=== PATIENT | male | born 1960 | race American Indian/Alaskan Native ===

== ENCOUNTER 2019-11-11 18:01 | Emergency (ER) | payer MEDICARE ==
[2019-11-11 18:33] VITALS: BP 141/79
--- NOTE | 2019-11-11 18:46 | Event Note ---
ED Screening Note Date of service: 11/11/19 Time: 18:45 ED Screening Note: 59 y o male presents with pain and swellinmg to right thumb x 2 days PMH: DM.HTN.cholesterol This initial assessment/diagnostic orders/clinical plan/treatment(s) is/are subject to change based on patients health status, clinical progression and re- assessment by fellow clinical providers in the ED. Further treatment and workup at subsequent clinical providers discretion. Patient/guardian urged not to elope from the ED as their condition may be serious if not clinically assessed and managed. Initial orders include: acc eval ID? antibiotics
[2019-11-11] MEDS ORDERED: SULFAMETHOXAZOLE/TRIMETHOPRIM 800/160MG DS TAB PO ONE (22:26)
[2019-11-11] MEDS ORDERED: HYDROcodone/ACETAMINOPHEN 5-325 MG TAB PO ONE (22:26)
--- NOTE | 2019-11-11 22:37 | Emergency Department Report ---
HPI - General Chief Complaint: Extremity Injury, Upper Time Seen by Provider: 11/11/19 21:57 - HPI HPI: 59-year-old -Cong[place] male presents to the emergency department with the complaint of a three-day history of some pain and swelling around the nail of his right thumb. He says that he attempted to open it by poking it with a needle but "only some blood came out." Patient has a history of insulin- dependent diabetes, previous throat cancer and high cholesterol. He just recently moved to the area and does not have a local primary care physician. Denies any fever. Full range of motion of his thumb and hand. ED Past Medical Hx - Past Medical History Hx Diabetes: Yes Hx of Cancer: Yes (throat) Additional medical history: Cholesterol - Surgical History Additional Surgical History: Throat surg - Social History Smoking Status: Current Every Day Smoker Substance Use Type: Alcohol - Medications Home Medications: Home Medications Medication Instructions Recorded Confirmed Last Taken Type Sulfamethoxazole/Trimethoprim 1 each PO BID #14 tablet 11/11/19 Unknown Rx [Bactrim DS TAB] ED Review of Systems ROS: Stated complaint: SORE THUMB Other details as noted in HPI Comment: All other systems reviewed and negative Constitutional: denies: chills, fever Musculoskeletal: joint swelling, arthralgia Skin: lesions (right thumb) Neurological: denies: numbness, paresthesias Physical Exam - Physical Exam Vital Signs: Vital Signs 11/11/19 18:30 Temperature 98 F Pulse Rate 94 H Respiratory 16 Rate Blood Pressure 141/79 O2 Sat by Pulse 97 Oximetry Physical Exam: GENERAL: The patient is well-developed well-nourished. HEENT: Normocephalic. Atraumatic. Patient has moist mucous membranes. EYES: Extraocular motions are intact. NECK: Supple. Trachea is midline. SKIN:Skin is warm and dry. Patient has a paronychia to the proximal nailbed and the ulnar side of the right thumb. NEURO: The patient is awake, alert, and oriented. The patient is cooperative. The patient has no focal neurologic deficits. Normal speech. MUSCULOSKELETAL: Patient has some tenderness to palpation to the right thumb, around the nail bed, with patient has a paronychia. Capillary refill less than 2 seconds. There is no limitation range of motion. ED Course Vital Signs 11/11/19 18:30 Temperature 98 F Pulse Rate 94 H Respiratory 16 Rate Blood Pressure 141/79 O2 Sat by Pulse 97 Oximetry - I & D Finger Type of Procedure: Simple Site: right thumb paronychia Blade Size: 11 I & D Procedure: betadine prep, sterile drapes applied Progress: A single small incision was made just proximal to the nail of the right thumb. There was a release of about 1-2 mL of pus. Patient tolerated the procedure well. ED Medical Decision Making - Medical Decision Making Patient has a paronychia of the right thumb. I&D was done and the patient will be placed on antibiotics. Accu-Chek was done through triage that showed some hyperglycemia but the patient is due for his nighttime diabetes medications. He has been given a prescription for antibiotics and referrals for primary care. He will return to the ER with any worsening of his symptoms or any acute distress. - Differential Diagnosis paronychia, cellulitis, tenosynovitis Critical Care Time: No Critical care attestation.: If time is entered above; I have spent that time in minutes in the direct care of this critically ill patient, excluding procedure time. ED Disposition Clinical Impression: Paronychia of thumb, right, Hyperglycemia Disposition: - TO HOME OR SELFCARE Is pt being admited?: No Condition: Stable Instructions: Paronychia (ED), Diabetic Hyperglycemia (ED) Additional Instructions: Please follow up with a primary care physician in the next few days. Soak the thumb in warm, but not hot water, multiple times per day and then make sure it remains dry. Return to the emergency Department with any worsening of your symptoms or any acute distress. Please go home and take your diabetes medications. Stay away from foods that are high in sugar, carbohydrates and starches. Keep a blood sugar log. Prescriptions: Sulfamethoxazole/Trimethoprim [Bactrim DS TAB] 1 each PO BID #14 tablet Referrals: MALENA BOLAÑOS MD [Staff Physician] - 2-3 Days [facility] [Outside] - 2-3 Days Time of Disposition: 22:39
== END 2019-11-11 22:50 | disposition home or self-care (01) ==
LOC: ED 18:01
DX: L03.011 Cellulitis of right finger (principal); E13.65 Other specified diabetes mellitus with hyperglycemia; C80.1 Malignant (primary) neoplasm, unspecified; C79.89 Secondary malignant neoplasm of other specified sites; F17.200 Nicotine dependence, unspecified, uncomplicated; Z79.899 Other long term (current) drug therapy
CPT/HCPCS: 82962